=== PATIENT | female | born 1970 | race Hispanic/Latino ===

== ENCOUNTER 2016-10-01 10:55 | Emergency (ER) | payer MEDICAID, OTHER ==
[2016-10-01 11:06] VITALS: O2SAT 98
--- NOTE | 2016-10-01 11:48 | C.PDOC ---
History Of Present Illness 45 year old female presents to the ED with complaints of pain to her right hand , right forearm, and bilateral hips s/p tripping on uneven sidewalk today. Patient states she landed on her right side and denies head injury, neck pain, back pain, or any other complaints at this time. Time Seen by Provider: 10/01/16 11:34 Chief Complaint (Nursing): Medical Clearance History Per: Patient History/Exam Limitations: no limitations Onset/Duration Of Symptoms: Hrs Current Symptoms Are (Timing): Still Present Severity: Mild Past Medical History Reviewed: Historical Data, Nursing Documentation, Vital Signs Vital Signs: Last Vital Signs Temp 98.2 F 10/01/16 13:25 Pulse 88 10/01/16 13:25 Resp 18 10/01/16 13:25 BP 128/78 10/01/16 13:25 Pulse Ox 98 10/01/16 13:25 - Medical History PMH: Anxiety, Asthma, Bipolar Disorder, Depression Family History: States: Unknown Family Hx - Social History Hx Alcohol Use: Yes Hx Substance Use: No Review Of Systems Except As Marked, All Systems Reviewed And Found Negative. Constitutional: Negative for: Fever, Chills Cardiovascular: Negative for: Chest Pain Gastrointestinal: Negative for: Vomiting, Abdominal Pain Musculoskeletal: Positive for: Hand Pain (+Right hand and right forearm pain), Other (+Bilateral hip pain). Negative for: Neck Pain, Back Pain Neurological: Negative for: Weakness, Numbness Physical Exam - Physical Exam Appears: Non-toxic, No Acute Distress Skin: Warm, Dry, Ecchymosis (+Ecchymosis and tenderness to the right palmar aspect over the area of the 5th metacarpal bone) Head: Atraumatic, Normacephalic Eye(s): bilateral: Normal Inspection Oral Mucosa: Moist Neck: Supple Chest: Symmetrical Respiratory: No Accessory Muscle Use Extremity: Normal ROM (+Normal ROM to the right shoulder, right elbow, and bilateral hips), Tenderness (+Tenderness to the right forearm +Tenderness to the bilateral hips), Capillary Refill (< 2 seconds), No Deformity, No Swelling Pulses: Left Radial: Normal, Right Radial: Normal Neurological/Psych: Oriented x3, Normal Speech, Normal Cognition, Normal Motor, Normal Sensation Gait: Steady ED Course And Treatment O2 Sat by Pulse Oximetry: 98 (Room air) Pulse Ox Interpretation: Normal - Other Rad Bilateral Hip X-ray X-Ray: Viewed By Me, Read By Radiologist Interpretation: Accession No. : [id number]. Patient Name / ID : PAYTON SANDOVAL / [id number]. Exam Date : 10/01/2016 11:58:20 ( Approved ). Study Comment : Sex / Age : F / 45Y. Creator : REDD RAO. Dictator : Alden De Luna MD. First Assistant : Pearl Cutter : Alden De Luna MD. Approver2 : Report Date : 10/01/2016 12:31:15. My Comment : . PROCEDURE: Radiographs of the pelvis and bilateral hips. HISTORY: fall. COMPARISON: None. FINDINGS: BONES: Pelvis: Unremarkable. Right hip:Unremarkable. Left hip:Unremarkable. JOINTS: Right hip: Unremarkable. Left hip: Unremarkable. Sacroiliac Joints: Unremarkable. Pubic symphysis: Unremarkable. SOFT TISSUES: Normal. OTHER FINDINGS: None. IMPRESSION: Unremarkable radiographs of the hips and pelvis. Right Hand X-ray X-Ray: Viewed By Me, Read By Radiologist Interpretation: Accession No. : [id number]. Patient Name / ID : PAYTON SANDOVAL / [id number]. Exam Date : 10/01/2016 11:59:29 ( Approved ). Study Comment : Sex / Age : F / 45Y. Creator : Tiara Kerr MD. Dictator : Tiara Kerr MD. First Assistant : Pearl Cutter : Tiara Kerr MD. Approver2 : Report Date : 10/01/2016 12:47:11. My Comment : . PROCEDURE: Right Hand Radiographs. HISTORY: Fall. COMPARISON: None. FINDINGS: BONES: Bone alignment and mineralization are normal. There is no acute fracture or bone destruction. JOINTS: The joint spaces are preserved. SOFT TISSUES: Normal. OTHER FINDINGS: None. IMPRESSION: No acute fracture or dislocation. Right Forearm X-ray X-Ray: Viewed By Me, Read By Radiologist Interpretation: Accession No. : [id number]. Patient Name / ID : PAYTON SANDOVAL / [id number]. Exam Date : 10/01/2016 11:59:45 ( Approved ). Study Comment : Sex / Age : F / 45Y. Creator : REDD RAO. Dictator : Tiara Kerr MD. First Assistant : Pearl Cutter : Tiara Kerr MD. Approver2 : Report Date : 10/01/2016 12:31:15. My Comment : . PROCEDURE: Radiographs of the Right Forearm. HISTORY: Fall. COMPARISON: None available. TECHNIQUE: Frontal and lateral views obtained. FINDINGS: BONES: There is no acute fracture or bone destruction. Bone alignment and mineralization are normal. JOINT SPACES: The joint spaces are preserved. OTHER FINDINGS: None. IMPRESSION: No acute fracture or dislocation. Progress Note: Right Forearm X-ray, Right Hand X-ray, Hip X-ray, and Urine POC ordered and reviewed. Patient treated with Tylenol. YISEL wrap applied to the right hand and forearm by the RN. Rx given and patient advised to follow up with her PMD in 1-2 days Disposition - Disposition Referrals: Shaik Martínez MD [Staff Provider] - Disposition: HOME/ ROUTINE Disposition Time: 13:02 Condition: STABLE Additional Instructions: Follow up with PMD within 1-2 days. Return to ED if feel worse. Prescriptions: Ibuprofen [Motrin Tab] 600 mg PO Q8 #30 tab traMADol [Ultram] 50 mg PO Q6 #20 tab Instructions: Contusion in Adults (ED) Forms: Work Excuse - Clinical Impression Clinical Impression: Multiple contusions - PA / [employer] / Resident Statement MD/DO has reviewed & agrees with the documentation as recorded. - Scribe Statement The provider has reviewed the documentation as recorded by the Scribe Kristian Jain. All medical record entries made by the Scribe were at my direction and personally dictated by me. I have reviewed the chart and agree that the record accurately reflects my personal performance of the history, physical exam, medical decision making, and the department course for this patient. I have also personally directed, reviewed, and agree with the discharge instructions and disposition.
--- NOTE | 2016-10-01 12:47 | RAD ---
PROCEDURE: Radiographs of the pelvis and bilateral hips HISTORY: fall COMPARISON: None. FINDINGS: BONES: Pelvis: Unremarkable. Right hip:Unremarkable. Left hip:Unremarkable. JOINTS: Right hip: Unremarkable. Left hip: Unremarkable. Sacroiliac Joints: Unremarkable. Pubic symphysis: Unremarkable. SOFT TISSUES: Normal. OTHER FINDINGS: None. IMPRESSION: Unremarkable radiographs of the hips and pelvis.
--- NOTE | 2016-10-01 12:48 | RAD ---
PROCEDURE: Right Hand Radiographs. HISTORY: Fall COMPARISON: None. FINDINGS: BONES: Bone alignment and mineralization are normal. There is no acute fracture or bone destruction. JOINTS: The joint spaces are preserved. SOFT TISSUES: Normal. OTHER FINDINGS: None. IMPRESSION: No acute fracture or dislocation.
--- NOTE | 2016-10-01 12:49 | RAD ---
PROCEDURE: Radiographs of the Right Forearm HISTORY: Fall COMPARISON: None available. TECHNIQUE: Frontal and lateral views obtained. FINDINGS: BONES: There is no acute fracture or bone destruction. Bone alignment and mineralization are normal. JOINT SPACES: The joint spaces are preserved. OTHER FINDINGS: None. IMPRESSION: No acute fracture or dislocation.
[2016-10-01 13:25] VITALS: BP 128/78; PULSE 88; RESP 18; TEMP 98.2
== END 2016-10-01 13:26 | disposition home or self-care (01) ==
LOC: C.ER 10:55
DX: S60.221A Contusion of right hand, initial encounter (principal); T14.8 Other injury of unspecified body region; W18.30XA Fall on same level, unspecified, initial encounter; Y92.480 Sidewalk as the place of occurrence of the external cause